=== PATIENT | male | born 1990 | race Caucasian/White ===

== ENCOUNTER 2024-03-05 22:13 | Inpatient (IN) | payer OTHER, SELFPAY ==
[2024-03-05 17:16] VITALS: BP 138/95
--- NOTE | 2024-03-05 18:25 | ED.GENMED ---
History of Present Illness
General
Chief Complaint: Abdominal Symptoms
Source: patient
Time Seen by Provider: 03/05/24 17:58
History of Present Illness
History of Present Illness:
33-year-old male with no significant past medical history presents to the emergency department for evaluation of abdominal discomfort, constipation and vomiting. Patient reports that he has not had a bowel movement in about 6 days, 2 days ago
started with persistent brown emesis. Patient notes that he normally has a bowel movement every 2 to 4 days which is not abnormal for him but states that now with the discomfort and vomiting is what brought him in today. Significant other did give
the patient some laxatives earlier today without any relief. Patient states he had a similar incident back in August where he did not have a bowel movement for a week but this resolved spontaneously and there was no vomiting associated. Patient
received any medical care at that time. Patient social history noncontributory. Surgical history also noncontributory. He is otherwise denying any fevers, urinary symptoms, chest pain, shortness of breath or any other concerns.
Past History
Past History
ED Past Medical History: None
ED Past Surgical History: None
Social History
Tobacco: Vaping
Alcohol: None
Drug: None
Personal:
Living: with family
Review of Systems
Review of Systems
All Other Systems: ROS reviewed and negative except as documented in HPI and ROS
Phy Exam
Physical Exam
Physical Exam:
GENERAL: Alert , in no apparent distress, small emesis within emesis bag
EYE: clear conjunctiva b/l
HEAD: NCAT
ENT: mmm.
CARDIAC: Regular rate and rhythm .
LUNGS: Clear breath sounds bilaterally, no acute respiratory distress, no wheezes/rales/rhonchi
ABDOMEN: Soft, hypoactive bowel sounds, without focal tenderness, no r/g, no cvat
NEUROLOGICAL: Alert and oriented
SKIN: Warm and dry, skin intact.
MUSCULOSKELETAL: well perfused.
PSYCH: Normal and appropriate interaction.
Scores
Heart Failure Risk
Heart Failure Risk Score: Not Applicable
Heart Score for Chest Pain Patients
STEMI patient?: Not applicable
Withdrawal Assessment of Alcohol
Withdrawal Assessment Completed?: Not applicable
Course
Orders/Labs/Results
Orders:
Orders
03/05/24 18:15
CT Abd/pelvis W Iv Cont Urgent
Comment:
Reason For Exam: diffuse pain, constipation, vomiting
0.9% Sodium Chloride 1000 ml [Nss] 1,000 ml IV BOLUS
Ondansetron Injectable [Zofran] 4 mg IV NOW STA
03/05/24 18:32
Basic Metabolic Panel Urgent
Complete Blood Count/With Diff Urgent
Lipase Urgent
03/05/24 20:35
Ondansetron Injectable [Zofran] 4 mg IV NOW STA
03/05/24 21:15
Urinalysis Reflex To Culture Urgent
Date Specimen was Collected: 03/05/24
Time Specimen was Collected: 18:42
03/05/24 21:37
Admit/Transfer Patient As Directed
Co-Sign Provider:
Level of Care: Inpatient admission
Assign to:: Medical/Surgical
Physician / Group: Htay
Diagnosis: Enteritis/SBO
Reason for Hospitalization: IVFs, Antiemetic
Expected length of stay greater than two midnights?: Yes
ELOS- Estimated Length of Stay in days: 3
I certify the patient meets the requirements for IP care: Yes
PRN Pain Medication Management As Directed
May give lesser potent ordered pain med per pt: Yes
preference::
Protocol:: Medication orders for pain may be administered in a
manner that supports deferring to patient preference
when the pt is:
- Requesting an ordered lesser potent pain medication.
Least to most potent pain medications are defined
as: acetaminophen < NSAID < tramadol < opioids
(morphine, oxycodone, hydromorphone).
- Requesting a lesser dose of the same medication IF
ORDERED.
- Requesting a less intrusive route of administration
if both routes are prescribed by the provider (PO <
IV).
03/05/24 21:40
Code Status As Directed
Resuscitation Status: Full Code
Abnormal Lab Results
03/05/24
18:32
MCH 31.2 H pg
(27.0-31.0)
Absolute Neuts (auto) 7.2 H 10^3/uL
(1.4-6.5)
Absolute Monos (auto) 1.0 H 10^3/uL
(0.1-0.6)
Neutrophils % 75.7 H %
(42.2-75.2)
Lymphocytes % 13.1 L %
(20.5-51.1)
Monocytes % 10.3 H %
(1.7-9.3)
Chloride 95 L mmol/L
(98-107)
Glucose 112 H mg/dl
(70-99)
03/05/24 18:32
03/05/24 18:32
Vital Signs
Initial and Last Documented VS:
Initial Vital Signs
Temp Pulse Resp BP Pulse Ox
97.7 F 77 18 138/95 97
03/05/24 17:16 03/05/24 17:16 03/05/24 17:16 03/05/24 17:16 03/05/24 17:16
Last Documented Vital Signs
Temp Pulse Resp BP Pulse Ox
97.7 F 76 18 138/76 99
03/05/24 17:16 03/05/24 18:44 03/05/24 18:44 03/05/24 18:44 03/05/24 18:44
MDM/Problems Addressed
Differential Diagnosis Includes:
constipation, bowel obstruction, ileus, less concern for acute infectious etiology
MDM/Problems Addressed:
33-year-old male presenting to the emergency department for evaluation of constipation x 1 week, 2 days ago started with brown-colored emesis which continued today. Patient currently stating no nausea but states that this occurs throughout the day.
Abdominal exam revealed hypoactive bowel sounds but no focal tenderness. Considered obstructive series versus CT but given patient's symptoms would like to obtain CT for further evaluation. Zofran and fluids ordered. Reassessment following
*Radiology
Radiology exam reviewed: radiology read reviewed
*Pulse Oximetry
Patient hypoxic: no
*Critical Care Note
Total Time (30-74mins, 75-104mins- exclusive of procedures): Not Applicable
Patient Management
Discussion with other providers: Hospitalist and [place]
Escalation/DeEscalation of care consider admission/obs:
Following first round of medications patient did note some improvement but about an hour or so afterwards started noticed the nausea again so an additional 4 mg Zofran was provided. Patient CT scan shows a suspected small bowel obstruction. I
notified general surgery and hospitalist team. Hospitalist team to admit. General surgery reviewed the scan and thought patient's symptoms were more likely related to enteritis and not an actual small bowel obstruction. Given the patient's
difficulty still with tolerating p.o. will admit for continued IV hydration and monitoring. Hospitalist team is aware and accepts.
ED Attending Note
-
Portions of this chart may have been created with voice recognition software.� Occasional wrong word or��sound alike� substitutions may have occurred due to the inherent limitations of voice recognition software.
Discharge Plan
Departure
Patient Disposition: Admit
Date of Disposition: 03/05/24
Time of Disposition: 21:26
Presentation/result/management discussed w/ accepting MD/DO: Hospitalist
Discharge Problem:
Small bowel obstruction
Prescriptions:
No Action
polyethylene glycol 3350 [Miralax] 17 gram Powder In Packet
17 g PO DAILYPRN PRN (Reason: constipation)
calcium carbonate [Tums] 200 mg calcium (500 mg) Tablet,Chewable
200 mg PO BIDPRN PRN (Reason: stomach issues)
ibuprofen 200 mg Tablet
600 mg PO Q6HPRN PRN (Reason: mild pain)
Referrals:
NONE,* [Family Provider] -
Interventions
Interventions:
*Risk Screen - Suicide Last Done: 03/05/24 17:21
*General Assessment Last Done: 03/05/24 17:20
*Neglect/Abuse Screening Last Done: 03/05/24 17:20
ED- Fall Risk Assessment Last Done: 03/05/24 18:06
PY-Dhuxug-Oionkphsgt Assessment Last Done: 03/05/24 18:06
Discharge Date and Time
Print Language: LIBERIAN
[2024-03-05] MEDS: ZOFRAN 4 MG IV ×2 (18:29→20:40)
[2024-03-05] MEDS: NSS 1000 IV (18:29)
[2024-03-05 18:44] VITALS: BP 138/76
[2024-03-05 18:55] LABS: % Basophils 0.2 % (0-2); % Eosinophils 0.5 % (0-6); % Immature Granulocytes 0.2 % (0-0.5); % Lymphocytes 13.1 % (20.5-51.1); % Monocytes 10.3 % (1.7-9.3); % Neutrophils 75.7 % (42.2-75.2); Absolute Eosinophils 0.1 10^3/uL (0-0.7); Absolute Lymphocytes 1.2 10^3/uL (1.2-3.4); Absolute Neutrophils 7.2 10^3/uL (1.4-6.5); Hematocrit 49.3 % (39.0-52.0); Hemoglobin 17.6 g/dL (13.0-18.0); Mean Corp Hgb Conc. 35.7 g/dL (33.0-37.0); Mean Corpuscular Hgb 31.2 pg (27.0-31.0); Mean Corpuscular Volume 87.3 fL (80.0-94.0); Mean Platelet Volume 9.4 fL (7.4-10.4); Nucleated Red Blood Cells % 0 % (-); Platelet Count 280 10^3/uL (130-400); Red Blood Cell Count 5.65 10^6/uL (4.70-6.10); Red Cell Dist. Width 12.1 % (11.5-14.5); White Blood Cell Count 9.5 10^3/uL (4.8-10.8)
[2024-03-05 19:05] LABS: Blood Urea Nitrogen 18 mg/dl (9-20); Calcium 9.7 mg/dl (8.4-10.2); Carbon Dioxide 28 mmol/L (22-30); Chloride 95 mmol/L (98-107); Glucose 112 mg/dl (70-99); Lipase 60 U/L (23-300); Sodium 137 mmol/L (135-145); eGFR > 60.00
[2024-03-05 20:44] VITALS: BP 126/74
--- NOTE | 2024-03-05 21:48 | HPS.HSE ---
Family Physician
-
Family Physician: * NONE
Chief Complaint
-
constipation and vomiting
History of Present Illness
33M no significant seen at ER evaluation of abdominal discomfort, constipation and vomiting.
- started with constipation for 6days. Nl bowel habit id every 2 -4 days
- follow by onset of persistent vomiting of brown vomits
- Significant other did give the patient some laxatives earlier today without any relief.
- HX similar incident back in August where he did not have a bowel movement for a week but this resolved spontaneously
Medical History
Past Medical History
Past Medical History: Reports None
Past Surgical History: Reports None
Social History
Tobacco: Non-smoker
Alcohol: None
Personal:
Living: With Family
Family History
Family History: Not pertinent
Allergies / Home Medications
Allergies reflects when Allergies were last updated in [facility].
Home Medications with original date entered in [facility]
Allergy/Medication List:
Allergies
Allergy/AdvReac Type Severity Reaction Status Date / Time
Penicillins Allergy Rash Verified 03/05/24 17:15
Home Medications
calcium carbonate (Tums) 200 mg PO BIDPRN PRN stomach issues 03/05/24
ibuprofen 200 mg tablet 600 mg PO Q6HPRN PRN mild pain 03/05/24
polyethylene glycol 3350 17 gram oral powder packet (Miralax) 17 g PO DAILYPRN PRN constipation 03/05/24
Review of Systems
-
Constitutional: Reports No Symptoms
EENT: Reports No Symptoms
Respiratory: Reports No Symptoms
Cardiac: Reports No Symptoms
Abdomen/GI: Reports See HPI
: Reports No Symptoms
Musculoskeletal: Reports No Symptoms
Skin: Reports No Symptoms
Neurological: Reports No Symptoms
Endocrine: Reports No Symptoms
Hematologic/Lymphatic: Reports No Symptoms
Psych: Reports No Symptoms
Physical Exam
Vital Signs
Vital Signs
Temp Pulse Resp BP Pulse Ox
97.7 F 76 18 138/76 99
03/05/24 17:16 03/05/24 18:44 03/05/24 18:44 03/05/24 18:44 03/05/24 18:44
Physical Exam
General: Well Developed, Well Nourished and No Apparent Distress
HEENT: NormoCephalic, Moist mucous membranes and Atraumatic
Respiratory: Clear
Cardiac: S1/S2 and Regular Rhythm; No Murmur or Rub
GI: Soft, Non Tender and Normal Bowel Sounds (hypoacive )
Rectal: Deferred by Provider
Musculoskeletal: No Clubbing, No Cyanosis and No Edema
Skin: No Rash
Neuro: Nonfocal/grossly intact
Laboratory Results
-
03/05/24 18:32
03/05/24 18:32
Laboratory Results
Total Bilirubin Cancelled 03/05/24 18:32
AST Cancelled 03/05/24 18:32
ALT Cancelled 03/05/24 18:32
Alkaline Phosphatase Cancelled 03/05/24 18:32
Lipase 60 U/L (23-300) 03/05/24 18:32
Data Reviewed
-
CT Scan: Report Reviewed by me
Lab Data: Labs Reviewed by me
Impression/Plan
-
Vital Signs
Temp Pulse Resp BP Pulse Ox
97.7 F 76 18 138/76 99
03/05/24 17:16 03/05/24 18:44 03/05/24 18:44 03/05/24 18:44 03/05/24 18:44
Abnormal Lab Results
03/05/24
18:32
MCH 31.2 H
Absolute Neuts (auto) 7.2 H
Absolute Monos (auto) 1.0 H
Neutrophils % 75.7 H
Lymphocytes % 13.1 L
Monocytes % 10.3 H
Chloride 95 L
Glucose [address] Abd/pelvis W Iv Cont
- Dilated small bowel with some air-fluid levels with findings at least suspicious for the possibility of mild incomplete mid to distal small bowel obstruction, evaluation limited without oral contrast. No free air.
- Distal colonic diverticulosis. Relative small volume colonic stool.
No prior hospitalist admission:
ASSESSMENT & PLAN
Partial mid to distal SBO
last emesis is prior to E arrival - brown metallic smell vomitis
Minor flatus more barbing
last BM was
No prior abdominal surgery
No prior episode of SBP
- NPO and IVF
- PRN narcotics
- NGT if persistent vomiting
- GS consulted
DVT Px: SCD
Code: Full
IP MS
[2024-03-05 23:37] VITALS: BP 127/83
[2024-03-06] MEDS: ZOFRAN 4 MG IV (00:22)
[2024-03-06] MEDS: NSS 1000 IV ×3 (00:26→17:00)
--- NOTE | 2024-03-06 01:00 | PTCARENOTE ---
Pt arrived to unit via stretcher and ambulated to his bed. Pt was admitted and oriented to unit. VS obtained, pt complains of no pain, only nausea. PRN zofran administered and IVF started. Pt. states no further requests at this time. Care ongoing.
[2024-03-06 06:48] LABS: Hematocrit 43.3 % (39.0-52.0); Hemoglobin 15.2 g/dL (13.0-18.0); Mean Corp Hgb Conc. 35.1 g/dL (33.0-37.0); Mean Corpuscular Hgb 30.2 pg (27.0-31.0); Mean Corpuscular Volume 86.1 fL (80.0-94.0); Mean Platelet Volume 9.2 fL (7.4-10.4); Platelet Count 241 10^3/uL (130-400); Red Blood Cell Count 5.03 10^6/uL (4.70-6.10); White Blood Cell Count 8.7 10^3/uL (4.8-10.8)
[2024-03-06 08:02] VITALS: BP 110/66
[2024-03-06 08:09] LABS: Blood Urea Nitrogen 15 mg/dl (9-20); Calcium 8.9 mg/dl (8.4-10.2); Carbon Dioxide 28 mmol/L (22-30); Chloride 100 mmol/L (98-107); Glucose 81 mg/dl (70-99); Potassium 4.1 mmol/L (3.5-5.1); Sodium 139 mmol/L (135-145); eGFR > 60.00
[2024-03-06] MEDS: NSS (PRESERVATIVE FREE) 10 ML IV (09:30)
[2024-03-06] MEDS: PROTONIX IV 40 MG IV (09:30)
[2024-03-06 12:46] VITALS: BMI 25.1
--- NOTE | 2024-03-06 13:03 | W.PN.HOSP.TC ---
Today's Communication/Plan
-
Bowel rest
IV fluids
As needed antiemetic
Assessment / Plan
Assessment / Plan
NAD, resting comfortably in bed
Scleral anicteric
Moist mucous membranes
No JVD
CTA bilateral
Normal S1-S2 no murmurs
Mildly distended bowel sounds active nontender
No peripheral pitting edema
Moves extremities spontaneously
AAOx3
Partial small bowel
-Allow for bowel rest
-IV fluids
-Avoid opioid containing agents
-If nausea vomiting worsen place NGT
-As needed antiemetics
Anticipated Discharge: 24 - 48 hours
Subjective/Interval History
-
Date of Service: March 06, 2024
Seen and examined. No new complaints. No acute overnight events.
No further evidence or episodes of nausea vomiting. Passing gas however no bowel movement
Objective Data
-
Labs:
Laboratory Results
03/06/24
06:34
WBC 8.7
Hgb 15.2
Hct 43.3
Plt Count 241
Sodium 139
Potassium 4.1
Chloride 100
Carbon Dioxide 28
BUN 15
Creatinine 1.0
Glucose 81
Calcium 8.9
Vital Signs:
Vital Signs
Temp Pulse Resp BP Pulse Ox
98.0 F 54 18 110/66 96
03/06/24 08:02 03/06/24 08:02 03/06/24 08:02 03/06/24 08:02 03/06/24 08:02
--- NOTE | 2024-03-06 16:22 | CON.GS ---
Consultation
-
Performing Provider: Herrera
Reason for Consultation: Abd Bloating, N/V
Medical History
-
Chief Complaint: Abdominal bloating, nausea/vomiting
History of Present Illness:
Patient is a 33-year-old male who was in his usual baseline state of health until this past weekend. He began developing abdominal distention and discomfort on Sunday after not having a bowel movement for couple days. This progressed into Sunday
with recurrent nausea vomiting and worsening abdominal distention with discomfort but not localizing abdominal pain. When his vomiting appeared more brownish in color on Sunday it prompted patient to present to the emergency department for
evaluation.
He had a similar episode like this in August 2023 during which he also did not move his bowels for 5 to 6 days, developed abdominal distention had some nausea and vomiting but it was not brown and symptoms resolved so he did not think much of it
other than maybe that he had a stomach bug.
Between August and now he has not had any worrisome or recurrent symptoms until this week. He typically moves his bowels every other day. Last bowel movement was , a week from today. He does not recall any dietary indiscretions or changes
in dietary habits preceding the symptoms. No sick exposures.
Denies any significant past medical history. No past abdominal surgical history.
He states that there are numerous cancers in the family and he thinks that on the maternal side a grandfather had colon cancer. He is not aware of any family history of IBD. Generally does not see physicians for routine follow-up. 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
previous loading dock helper. No prior history of colonoscopy.
Past Medical History
Past Medical History: None
Past Surgical History: None
Social History
Tobacco: Non-Smoker
Personal:
Living: With Family
Family History
Family History: Cancer (See HPI)
Allergies / Home Medications
Allergy/AdvReac Type Severity Reaction Status Date / Time
Penicillins Allergy Rash Verified 03/05/24 17:15
�Medication �Instructions �Recorded �Confirmed �Type
polyethylene glycol 3350 17 gram 17 g PO DAILYPRN PRN constipation 03/05/24 03/05/24 History
oral powder packet (Miralax)
Review of Systems
-
History Source: Patient and Family
All other systems: Negative unless noted
A 10 point review of systems was completed, and was negative except as per HPI.
Physical Exam
Vital Signs
Temp Pulse Resp BP Pulse Ox
98.0 F 54 18 110/66 96
03/06/24 08:02 03/06/24 08:02 03/06/24 08:02 03/06/24 08:02 03/06/24 08:02
Lab Results
03/06/24 06:34
03/06/24 06:34
WBC 8.7 10^3/uL (4.8-10.8) 03/06/24 06:34
Hgb 15.2 g/dL (13.0-18.0) 03/06/24 06:34
Hct 43.3 % (39.0-52.0) 03/06/24 06:34
Plt Count 241 10^3/uL (130-400) 03/06/24 06:34
Abs Immat Gran (auto) 0.0 10^3/uL (0-0.05) 03/05/24 18:32
Neutrophils % 75.7 % (42.2-75.2) H 03/05/24 18:32
Physical Exam
General: Well Developed, Well Nourished, No Apparent Distress and Comfortable
HEENT: Normocephalic, Anicteric and Moist Mucous Membranes
Respiratory: Non Labored Respirations
Cardiac: Regular Rhythm
GI: Soft, Non Tender, Distended (Mildly distended with tympany on percussion throughout. No percussion tenderness) and Other (No hernias, no masses)
Skin: Warm
Neuro: AO x 3
Data Reviewed
-
CT Scan: Image Personally Visualized and interpreted, Report Reviewed by me, Discussed with Patient and Discussed with Family
Labs: Labs Reviewed by me, Discussed with Patient and Discussed with Family
Assessment / Plan
-
Assessment: 33-year-old male presenting with ileus versus small bowel obstructive like symptoms of uncertain etiology.
Similar episode in August [address] imaging as well as radiologist report. No significant gastric distention. Fluid-filled/air-filled loops of small bowel throughout all the way down through distal ileum. No abrupt transition point but small bowel tapers to
normal diameter at terminal ileum. No evidence of internal hernia/closed-loop obstruction. Some enhancement of small bowel wall but no significant wall thickening. Trace free fluid within the small bowel mesentery areas. Air, stool/liquid within
the cecum, ascending colon and transverse colon. Descending colon/sigmoid and rectum are decompressed. No pneumatosis.
Plan: Trial on full liquid diet this evening as his symptoms are subsiding but he still remains softly distended.
Follow-up abdominal x-ray in a.m. to evaluate for small bowel air-fluid level/gas pattern/distention.
If symptoms resolving and x-ray improved advance diet tomorrow and discharge home.
If recurrent obstructive symptoms recommend obtaining contrast GI imaging study with either small bowel follow-through versus contrast CT imaging.
Will follow
[2024-03-06 16:45] VITALS: BP 130/82
[2024-03-06 23:28] VITALS: BP 137/81
[2024-03-07] MEDS: NSS 1000 IV (01:18)
[2024-03-07 07:10] VITALS: BP 127/75
--- NOTE | 2024-03-07 07:22 | W.PN.GS2 ---
Today's Communication / Plan
-
`
Assessment / Plan
-
Assessment: 34-year-old male presenting with obstructive symptoms of uncertain etiology. No past surgical history but similar prior event last August.
Imaging without abrupt transition point, no internal hernia, no volvulus, no masses. Possible enteritis with ileus, possible partial small bowel obstruction.
AFVSS
Clinically improving
Plan: Follow-up abdominal x-ray just to evaluate bowel gas pattern
Low residue diet for breakfast
Dose of MiraLAX this a.m.
DC home if tolerates breakfast without return of obstructive symptoms
Advised patient that my office will follow-up with him as an outpatient to arrange for subsequent outpatient contrast GI imaging given second event in the last 6 to 8 months.
Subjective Data
-
Date of Service: March 07, 2024
Patient seen and examined this a.m.
Tolerating full liquid diet.
No nausea, no vomiting, no abdominal pain
Passing flatus but no bowel movement
Objective Data
-
Intake and Output
03/06/24 03/07/24 03/08/24
06:59 06:59 06:59
Other:
Number of approximated MODERATE 1
amounts of urine
Number of approximated LARGE 1
amounts of urine
Vital Signs
Temp Pulse Resp BP Pulse Ox
98.6 F 56 14 137/81 99
03/06/24 23:28 03/06/24 23:28 03/06/24 23:28 03/06/24 23:28 03/06/24 23:28
Lab Results
03/06/24 06:34
03/06/24 06:34
Calcium 8.9 mg/dl (8.4-10.2) 03/06/24 06:34
Total Bilirubin Cancelled 03/05/24 18:32
AST Cancelled 03/05/24 18:32
ALT Cancelled 03/05/24 18:32
Alkaline Phosphatase Cancelled 03/05/24 18:32
Total Protein Cancelled 03/05/24 18:32
Albumin Cancelled 03/05/24 18:32
Physical Exam
-
NAD AAOx3
ABD: Soft, nondistended but still with some tympany on percussion. No tenderness
--- NOTE | 2024-03-07 10:34 | W.PN.HOSP.TC ---
Today's Communication/Plan
-
.
Assessment / Plan
Assessment / Plan
NAD, resting comfortably in bed
Scleral anicteric
Moist mucous membranes
No JVD
CTA bilateral
Normal S1-S2 no murmurs
Soft, improved distention however still very slightly present, bowel sounds active, nontender
No peripheral pitting edema
Moves extremities spontaneously
AAOx3
Partial small bowel
Per surgery if tolerates breakfast without obstructive symptoms, if x-ray shows improvement, then can be discharged home with outpatient surgery follow-up
Constipation
Continue MiraLAX
Anticipated Discharge: Today
Subjective/Interval History
-
Date of Service: March 07, 2024
seen and examnied. Feeling better. No new complaints. No acute overnight events
Abdominal distention improved
More gas today
Objective Data
-
Vital Signs:
Vital Signs
Temp Pulse Resp BP Pulse Ox
98.7 F 60 17 127/75 98
03/07/24 07:10 03/07/24 07:10 03/07/24 07:10 03/07/24 07:10 03/07/24 07:10
--- NOTE | 2024-03-07 10:36 | W.DCSUMMARY ---
Discharge Summary
Discharge Data
Date of Admission: 03/05/24
Date of Discharge: 03/07/24
-
Pending Results: No
Hospital Course
Presented with nausea vomiting and constipation. Concern for partial small bowel obstruction. Evaluated by surgery. No surgery at this time. Recommend repeat abdominal xray which continued to demonstrate partial SBO but improving when compared to
CTAP. On the day of discharge it was recommended by surgery if able to tolerate breakfast without obstructive symptoms then can be discharge home with outpatient surgery follow up.
Recommended to avoid alcohol as this can further irritate stomach lining. Soft east diet.
Tums can cause constipation. Add fiber to diet
If needed can use miralax daily or twice a day as needed
Follow up with general surgery as an outpatient
Follow up with PCP as an outpatient
If symptoms return please return to hospital immediately
CTAP (03/05)
IMPRESSION:
Dilated small bowel with some air-fluid levels with findings at least suspicious for the possibility of mild incomplete mid to distal small bowel obstruction, evaluation limited without oral contrast. No free air.
Distal colonic diverticulosis. Relative small volume colonic stool.
Abd Xray (03/07)
IMPRESSION:
Couple of dilated small bowel loops within the midabdomen compatible with partial small bowel destruction. Overall bowel gas pattern appears improved compared to the prior CT from 03/05/2024.
Discharge Plan
-
Patient Disposition: Home (Routine Discharge)
Discharge Diagnosis/Procedures: partial small bowel obstruction
Diet: Low Fiber
Additional Diets: Recommend low fiber foods. Smaller portion sizes for the next couple weeks.
Activity: As tolerated
Driving Restrictions: As prior to admission
Activity Restrictions/Additional Instructions:
Presented with nausea vomiting and constipation. Concern for partial small bowel obstruction. Evaluated by surgery. No surgery at this time. Recommend repeat abdominal xray which continued to demonstrate partial SBO but improving when compared to
CTAP. On the day of discharge it was recommended by surgery if able to tolerate breakfast without obstructive symptoms then can be discharge home with outpatient surgery follow up.
Recommended to avoid alcohol as this can further irritate stomach lining. Soft east diet.
Tums can cause constipation. Add fiber to diet
If needed can use miralax daily or twice a day as needed
Follow up with general surgery as an outpatient
Follow up with PCP as an outpatient
If symptoms return please return to hospital immediately
CTAP (03/05)
IMPRESSION:
Dilated small bowel with some air-fluid levels with findings at least suspicious for the possibility of mild incomplete mid to distal small bowel obstruction, evaluation limited without oral contrast. No free air.
Distal colonic diverticulosis. Relative small volume colonic stool.
Abd Xray (03/07)
IMPRESSION:
Couple of dilated small bowel loops within the midabdomen compatible with partial small bowel destruction. Overall bowel gas pattern appears improved compared to the prior CT from 03/05/2024.
Referrals:
NONE,* [Family Provider] -
Tye Silverman MD [Active] - (Follow up for partial small bowel obstruction)
Prescriptions:
Continued
polyethylene glycol 3350 [Miralax] 17 gram Powder In Packet
17 g PO DAILYPRN PRN (Reason: constipation)
Discontinued
calcium carbonate [Tums] 200 mg calcium (500 mg) Tablet,Chewable
200 mg PO BIDPRN PRN (Reason: stomach issues)
ibuprofen 200 mg Tablet
600 mg PO Q6HPRN PRN (Reason: mild pain)
Discharge Orders:
Discharge Patient (As Directed); Ordered 03/07/24
Ordered By: Josh Arroyo
Discharge Date and Time
Print Language: ARMENIAN
[2024-03-07] MEDS: NSS IV (11:29)
[2024-03-07] MEDS: PROTONIX IV 40 MG IV (11:30)
[2024-03-07] MEDS: NSS (PRESERVATIVE FREE) 10 ML IV (11:30)
[2024-03-07] MEDS: MIRALAX 17 GRAMS PO (11:30)
== END 2024-03-07 12:18 | disposition home or self-care (01) | DRG 390 ==
LOC: 3 WEST ACU 22:13
PROVIDERS: Physician Assistant Medical; ADMITTING PHYSICIAN Internal Medicine; ATTENDING PHYSICIAN Hospitalist; CONSULT PHYSICIAN Surgery; EMERGENCY PHYSICIAN Emergency Medicine
DX: K56.600 Partial intestinal obstruction, unspecified as to cause (principal); K57.30 Diverticulosis of large intestine without perforation or abscess without bleeding; Z79.899 Other long term (current) drug therapy; Z88.0 Allergy status to penicillin; Z80.0 Family history of malignant neoplasm of digestive organs
CPT/HCPCS: 74018; 74177; 80048; 83690; 85025; 85027; 96361; 96374; 96376; 99284; Q9967

== ENCOUNTER → 2024-04-04 09:17 | Outpatient (REF) | payer OTHER, SELFPAY | LOC: RAD 09:17 | PROVIDERS: ATTENDING PHYSICIAN Surgery | DX: K56.600 Partial intestinal obstruction, unspecified as to cause (principal) | CPT/HCPCS: 74250 ==

== ENCOUNTER 2024-09-22 06:22 | Day surgery (SDC) | payer OTHER, SELFPAY | END 2024-09-22 14:05 | disposition home or self-care (01) | LOC: GI 06:22 | PROVIDERS: ATTENDING PHYSICIAN Internal Medicine Gastroenterology | DX: K59.04 Chronic idiopathic constipation (principal); K64.8 Other hemorrhoids | CPT/HCPCS: 45378 ==